=== PATIENT | male | born 1965 | race Caucasian/White ===

== ENCOUNTER 2022-08-27 13:08 | Emergency (ER) | payer OTHER, SELFPAY ==
[2022-08-27 13:18] VITALS: BP 143/95; PULSE 74; RESP 12; TEMP 36.8; O2SAT 96
--- NOTE | 2022-08-27 14:01 | ED.GENADUL_ITS ---
Discharge Plan Disposition Patient Disposition: Home Condition: Stable Discharge Details Clinical Impression: Leg weakness Primary Care Provider: Unknown,Unknown ED Provider: Eliot Peña Home Meds and New Rx's Prescriptions: Continued sennosides [senna] 8.6 mg Tablet 8.6 mg PO 2XD cetirizine 10 mg Tablet 10 mg PO 1XD levothyroxine 50 mcg Tablet 50 mcg PO 1XD pantoprazole 40 mg Tablet,Delayed Release (Dr/Ec) 40 mg PO 1XD ibuprofen 400 mg Tablet 400 mg PO 2XD PRN (Reason: Pain) aspirin 81 mg Tablet,Chewable 81 mg PO 1XD albuterol sulfate 90 mcg/actuation Hfa Aerosol Inhaler 90 mcg INHALATION 2XD MDD 2 PRN (Reason: Dyspnea) Discharge Instructions Additional Instructions: Your thyroid functions were mildly abnormal, these should be rechecked in 1-2 weeks and potentially have your levothyroxine adjusted Your exam otherwise showed no concerning findings at this time IF you develop fevers, inability to urinate, or speech difficulties return to the emergency department Medical Decision Making 57 yo male with hx of hypothyroidism, gerd, who comes in from the correctional facility after his legs gave out today. He states this happens frequently and has chronic issues with his lower legs from previous injuries. Denies any recent injuries or falls. HE was laying in bed and got up when his legs gave outand he caught himself on the bed. Denies falling to the ground, no chest pain, no dyspnea, no lightheadedness. He feels well now. Denies any back pain, fevers, chills, difficulty urinating or ivdu. He has normal sensation in the lower extremities, full rom with 5/5 strength, no lower back tenderness. NIH of 0 on arrival , clear speech no focal motor or sensation deficits. CN II-XII intact. I suspect his episode today was from his chronic issues with his legs, has no pain or tenderness of his legs currently so do not feel he requires any imaging. He is ambulating here without any issues and gait is normal. Will check cbc, cmp and cpk and reassess. pt stable, still ambulating on his own and nih of 0. Labs show no significant abnormalities, tsh is 12.59 and free t4 0.61. He is stable for d/c, advised to have tsh/free t4 rechecked with his provider, return precautions given Differential Diagnosis Differential Diagnosis: anemia, electrolyte abnormality HPI General Mode of arrival: ambulatory . Date/Time Provider Initiated Documentation: 08/27/22 13:28 . Limitations to Documentation: no limitations . Information obtained by: patient . History of Present Illness 57 year old M presents to the emergency department with the chief complaint of 'legs gave out, Patient started experiencing this day(s) (1) and it has been constant. No relieving factors improve symptom(s), No exacerbating factors reported . Patient notes no other symptoms.. Patient did receive the following treatments prior to arrival, none Related Data Home Medications Medication Instructions Recorded Confirmed albuterol sulfate 90 mcg/actuation 90 mcg inhalation 2XD PRN Dyspnea 08/27/22 08/27/22 aerosol inhaler aspirin 81 mg chewable tablet 81 mg PO 1XD 08/27/22 08/27/22 cetirizine 10 mg tablet 10 mg PO 1XD 08/27/22 08/27/22 ibuprofen 400 mg tablet 400 mg PO 2XD PRN Pain 08/27/22 08/27/22 levothyroxine 50 mcg tablet 50 mcg PO 1XD 08/27/22 08/27/22 pantoprazole 40 mg tablet,delayed 40 mg PO 1XD 08/27/22 08/27/22 release sennosides 8.6 mg tablet (senna) 8.6 mg PO 2XD 08/27/22 08/27/22 Allergies Allergy/AdvReac Type Severity Reaction Status Date / Time shellfish derived Allergy Mild Hives Unverified 08/27/22 13:29 General Stated Complaint: GenMedical KAILYN: 3 Review of Systems All systems reviewed & are unremarkable except as noted in HPI and below Constitutional Constitutional: Denies chills, Denies fever(s) and Denies weakness Cardiovascular Cardiovascular: Denies chest pain and Denies dyspnea Respiratory Respiratory: Denies cough and Denies dyspnea Gastrointestinal Gastrointestinal: Denies abdominal pain, Denies nausea and Denies vomiting Genitourinary Genitourinary: Denies dysuria Musculoskeletal Musculoskeletal: Denies joint swelling Integumentary/Breasts Skin/Breast: Denies rash Neurologic Neurologic: Denies weakness PFSH All Active Problems (Updated 08/27/22 @ 15:49 by Eliot Peña MD) Leg weakness (Acute) Social History Smoking/Tobacco Use Status: Former Tobacco Use Quit Date: 11/19/21 Tobacco: How many years used: 50 Smoking risk assessment performed?: Yes Do you feel safe at home: Yes Do you feel safe in your relationship?: Yes Exam Const General: no acute distress Orientation: alert HENMT Head: normal to inspection Ears: external ears normal General nose exam: external nose normal Mouth: moist mucous membranes Eyes General: appearance normal, both eyes and all related structures Neck Neck: normal visual inspection Resp Effort & Inspection: normal respiratory effort and able to speak in complete sentences Cardio Rate: regular rate Back/Spine/Pelvis Back: no CVA tenderness Thoracic/Lumbar Spine: No lumbar spinal tenderness Skin General skin exam: no rashes or lesions noted Neuro General: patient alert, patient oriented x3, gait normal and moves all extre mities Cranial Nerves: CN's II-XI intact bilaterally and PERRL Extrem General: normal to inspection Psych Mental Status: mental status grossly normal Course Vital Signs Vital signs: Vital Signs Temperature 36.8 C 08/27/22 13:18 Pulse 74 08/27/22 13:18 Respiratory Rate 12 08/27/22 13:18 Blood Pressure 143/95 H 08/27/22 13:18 Pulse Oximetry 96 08/27/22 13:18 Temperature 36.8 C 08/27/22 13:18 Pulse 74 08/27/22 13:18 Respiratory Rate 12 08/27/22 13:18 Respiratory Effort 08/27/22 13:24 Blood Pressure 143/95 H 08/27/22 13:18 Blood Pressure Position Sitting 08/27/22 13:18 Pulse Oximetry 96 08/27/22 13:18 Oxygen Delivery Method Room Air 08/27/22 13:18 Oxygen Flow Rate 0 08/27/22 13:18
[2022-08-27 14:21] LABS: Abs Immature Grans 0.04 10^3/uL (0.0-0.06); Absolute Basophil Count 0.06 10^3/uL (0.0-0.2); Absolute Eosinophil Count 0.29 10^3/uL (0.0-0.7); Absolute Lymphocyte Count 0.95 10^3/uL (1.2-3.4); Absolute Monocyte Count 0.59 10^3/uL (0.1-0.8); Absolute Neutrophil Count 2.95 10^3/uL (1.2-6.7); Basophils % 1.2; Eosinophils % 5.9; HCT 39.9 % (40.0-50.0); HGB 14.1 g/dL (13.5-17.5); Immature Grans % 0.8; Lymphocytes % 19.5; MCHC 35.3 % (32.0-36.0); MCV 99 fL (80-95); MPV 8.4 fL (8.0-11.0); Monocytes % 12.1; Neutrophils % 60.5; Platelet Count 239 10^3/uL (130-400); RBC 4.03 10^6/uL (4.36-5.78); RDW-SD 44.1 fL; WBC 4.88 10^3/uL (4.4-10.8)
[2022-08-27 14:43] LABS: ALT 54 U/L (16-63); AST 38 U/L (15-37); Albumin 4.1 g/dL (3.4-5.0); Alkaline Phosphatase 115 U/L (46-116); Anion Gap 6.6 mmol/L (3-11); BUN 10 mg/dL (7-18); Bilirubin, Total 0.3 mg/dL (0.2-1.0); CO2 29.4 mmol/L (21.0-32.0); CREATININE 1.1 mg/dL (0.70-1.30); Chloride 105 mmol/L (98-107); Creatine Kinase 88 U/L (39-308); Glucose 95 mg/dL (74-106); Potassium 4.2 mmol/L (3.5-5.1); Sodium 141 mmol/L (136-145); TSH (W/Ref FT4) 12.59 uIU/mL (0.36-3.74); Total Protein 7.4 g/dL (6.4-8.2)
[2022-08-27 14:59] LABS: FREE T4 0.61 ng/dL (0.76-1.46)
[2022-08-27] MEDS: Ibuprofen 600 MG TAB PO (16:01)
[2022-08-27 16:02] VITALS: BP 142/93; PULSE 69; RESP 18; O2SAT 97
[2022-08-27 16:04] VITALS: RESP 15
== END 2022-08-27 16:09 | disposition home or self-care (01) ==
PROVIDERS: Emergency Provider Emergency Medicine
DX: R53.1 Weakness (principal)
CPT/HCPCS: 80053; 82550; 99283; 83735; 84439; 84443; 85025

== ENCOUNTER 2023-02-19 14:36 | Observation (INO) | payer MEDICAID, SELFPAY ==
[2023-02-19] VITALS (137 sets, daily range): BP systolic 146–198; BP diastolic 86–139; PULSE 73–89; RESP 10–31; TEMP 37.1; O2SAT 89–96
--- NOTE | 2023-02-19 14:30 | RT.EKG_ITS ---
APPROVED REPORT Exam: Resting ECG Reason for Exam: sob Patient Location: E HR:71 bpm ECG Measurements Heart Rate 71 AXIS VT 120 P 35 QRSd 87 QRS 48 QT 401 T 111 QTc 436 Conclusion Sinus rhythm...normal P axis, V-rate 60- 99 Nonspecific T abnormalities, lateral leads...T <-0.10mV, I aVL V5 V6
[2023-02-19 14:57] LABS: BE -4 mmol/L (-2-3); HCO3 20 mmol/L (22-26); pCO2 25 mmHg (35-45); pH 7.51 (7.35-7.45); pO2 59 mmHg (80-105); sO2 92 % (95-98); tCO2 17 mmol/L (23-27)
--- NOTE | 2023-02-19 15:00 | DI.CT_ITS ---
Exam(s) CT CHEST PE CTA EXAM: CT CHEST PE CTA CLINICAL HISTORY: short of breath, hx malignancy. TECHNIQUE: Imaging Protocol: Axial CT angiography was performed with multi-slice acquisition and mu lti-planar reconstructions as well as axial, coronal and sagittal MIP reconstructions. CONTRAST MATERIAL: Intravenous: Omnipaque 350 Contrast volume:100 ml COMPARISON: No exams were available for comparison FINDINGS: Pulmonary Arteries: No evidence of filling defect to suggest pulmonary emboli. Tracheobronchial tree: Patent where visualized. Mediastinum and Jeane: No dominant adenopathy or fluid collection. Pulmonary parenchyma: No consolidation or dominant measurable mass. Emphysematous and fibrotic change s noted. Bibasilar atelectasis. Pleura: No effusion or pneumothorax. Heart: The heart is not dilated. No coronary artery calcifications are seen. Aorta: Thoracic aorta non-dilated. No aneurysm. No dissection. Upper abdomen: Fatty infiltration of the liver. Bones: Degenerative changes mid to lower thoracic spine. Tubes, Catheters, and Lines: None IMPRESSION: No evidence of pulmonary embolism. No evidence of aortic dissection Emphysematous and fibrotic changes. No acute pulmonary abnormality. RADIATION DOSE DELIVERED: 469.13mGy.cm Total DLP DATA REPOSITORY: All CT scans at this facility are submitted to the National Radiology Data Registry (NRDR) Dose Index Registry (DIR) with the [employer] (A[employer]). RADIATION OPTIMIZATION: All CT scans at this facility use at least one of these dose optimization te chniques: automated exposure control; mA and/or kV adjustment per patient size (includes targeted exa ms where dose is matched to clinical indication); or iterative reconstruction.
--- NOTE | 2023-02-19 15:17 | ED.GENADUL_ITS ---
Discharge Plan Disposition Patient Disposition: Admit to [facility] Condition: Serious Discharge Details Chief Complaint: SOB Clinical Impression: Acute dyspnea, Chest pain Primary Care Provider: Unknown,Unknown ED Provider: Shreya Angelo Home Meds and New Rx's Prescriptions: No Action prednisone 20 mg tablet 40 mg PO DAILY Qty: 10 0RF Rx Instructions: Take 2 tablets once a day for 5 days. Anoro Ellipta 62.5-25 mcg/actuation blister with device 1 inh inhalation DAILY Qty: 60 12RF hemorrhoid ointment See Rx Instructions .ROUTE DIRECTED Rx Instructions: as directed; Atrovent HFA 17 mcg/actuation HFA aerosol inhaler See Rx Instructions inhalation DIRECTED Rx Instructions: inhaled as directed; pantoprazole 40 mg tablet,delayed release (DR/EC) 40 mg PO BID Patient Comments: Not taking per med list 02/19/23 meloxicam 7.5 mg tablet 7.5 mg PO DAILY sennosides [senna] 8.6 mg Tablet 8.6 mg PO 2XD Patient Comments: Not taking per med list 02/19/23 cetirizine 10 mg Tablet 10 mg PO 1XD Patient Comments: Not taking per med list 02/19/23 levothyroxine 50 mcg Tablet 50 mcg PO 1XD ibuprofen 400 mg Tablet 400 mg PO 2XD PRN (Reason: Pain) Patient Comments: Not taking per med list 02/19/23 aspirin 81 mg Tablet,Chewable 81 mg PO 1XD albuterol sulfate 90 mcg/actuation Hfa Aerosol Inhaler 90 mcg INHALATION 2XD MDD 2 PRN (Reason: Dyspnea) Medical Decision Making 58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 History from patient and EMS. Symptoms lasted for ~4 hours. EMS gave 2 duonebs, 1 albuterol treatemnt, 125mg of IV solumedrol prior to arrival. Patient reports feeling much better on arrival, has mild chest pain and minimal shortness of breath at rest. Moderately hypertensive with SBP in 160's, vital signs otherwise reassuring, O2 sat >92% on room air.. No wheezing or increased work of breathing on exam. He does become dyspneic with minimal exertion i.e. sitting up on stretcher to allow for auscultation. EKG NSR, nonspecific T wave abnormalities in the the lateral leads, no ST segment or T wave changes to suggest occlusive PA. Labs as below, CBC & CMP reassuring; no leukocytosis or anemia, elevated glucose at 228 (patient denies DM), Cr 1.4 (marginally increased from most recent prior Aug 2022 was 1.1). Troponin negative. CT for PE independently reviewed; no pulmonary embolism, no pneumonia or pneumothorax, agree with radiology read below. Delta troponin pending. Workup reassuring but patient markedly symptomatic with minimal exertion. Accepted by hospitalist for further workup and management, awaiting transfer to the floor. Imaging Data Radiologic Study: Imaging: CT Scan Radiologist's impression: IMPRESSION: No evidence of pulmonary embolism. No evidence of aortic dissection Emphysematous and fibrotic changes.? No acute pulmonary abnormality. Lab Data Lab results reviewed: Yes I reviewed the patient's lab results. Labs: Laboratory Tests Range/Units 02/19/23 02/19/23 02/19/23 15:29 15:29 15:29 WBC (4.4-10.8) 10^3/uL 6.97 RBC (4.36-5.78) 10^6/uL 4.40 Hgb (13.5-17.5) g/dL 15.1 Hct (40.0-50.0) % 41.7 MCV (80-95) fL 95 MCH (27.0-33.0) pg 34.3 H MCHC (32.0-36.0) % 36.2 H RDW (11.8-14.1) % 12.5 Plt Count (130-400) 10^3/uL 295 MPV (8.0-11.0) fL 8.3 Immature Gran % 0.0 Neutrophils % 79.0 Lymphocytes % 16.0 Monocytes % 4.0 Eosinophils % 0.0 Basophils % 0.0 Metamyelocytes % 1 Nucleated RBC % (0.0-0.3) % 0.0 Absolute Neutrophils (1.2-6.7) 10^3/uL 5.51 Absolute Lymphocytes (1.2-3.4) 10^3/uL 1.12 L Absolute Monocytes (0.1-0.8) 10^3/uL 0.28 Absolute Eosinophils (0.0-0.7) 10^3/uL 0.00 Absolute Basophils (0.0-0.2) 10^3/uL 0.00 RBC Morphology Normal Sodium (136-145) mmol/L 138 Potassium (3.5-5.1) mmol/L 3.7 Chloride (98-107) mmol/L 103 Carbon Dioxide (21.0-32.0) mmol/L 22.3 Anion Gap (3-11) mmol/L 12.7 H BUN (7-18) mg/dL 18 Creatinine (0.70-1.30) mg/dL 1.4 H Est GFR (CKD-EPI 2020) (mL/min/1.73m2) 58.26 Glucose (74-106) mg/dL 228 H Calcium (8.5-10.1) mg/dL 9.4 Magnesium (1.8-2.4) mg/dL 2.0 Total Bilirubin (0.2-1.0) mg/dL 0.4 AST (15-37) U/L 47 H ALT (16-63) U/L 131 H Alkaline Phosphatase (46-116) U/L 101 Troponin I (<or=60) ng/L < 50 NT-Pro-B Natriuret Pep (<300) pg/mL 48 Total Protein (6.4-8.2) g/dL 7.7 Albumin (3.4-5.0) g/dL 4.2 HPI General Date/Time Provider Initiated Documentation: 02/19/23 14:45 . Limitations to Documentation: no limitations . Information obtained by: patient . 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 Has noticed worsening dyspnea on exertion over the past several weeks which usually resolves with rest. Today while ambulating had severe shortness of breath was associated chest pain/tightness which lasted for around four hours and did not resolve with rest. EMS gave breathing treatments prior to arrival; currently reports breathing is much improved and chest pain is almost gone (2/10 in severity, substernal, dull, no alleviating or aggravating factors, not pleuritic). No prior heart attacks or heart failure; did have heart burning which they burned away (possibly ablation for afib? patient unsure). No fevers, chills, rash, nasuea, vomiting, abdominal pain, LE edema, palpitations, syncope, presyncope, or other concerns. Related Data Home Medications Medication Instructions Recorded Confirmed albuterol sulfate 90 mcg/actuation 90 mcg inhalation 2XD PRN Dyspnea 08/27/22 02/19/23 aerosol inhaler aspirin 81 mg chewable tablet 81 mg PO 1XD 08/27/22 02/19/23 cetirizine 10 mg tablet 10 mg PO 1XD 08/27/22 02/12/23 ibuprofen 400 mg tablet 400 mg PO 2XD PRN Pain 08/27/22 02/12/23 levothyroxine 50 mcg tablet 50 mcg PO 1XD 08/27/22 02/19/23 sennosides 8.6 mg tablet (senna) 8.6 mg PO 2XD 08/27/22 02/12/23 hemorrhoid ointment See Rx Instructions .Route 02/05/23 02/19/23 DIRECTED ipratropium bromide 17 See Rx Instructions inhalation 02/05/23 02/19/23 mcg/actuation HFA aerosol inhaler DIRECTED (Atrovent HFA) meloxicam 7.5 mg tablet 7.5 mg PO DAILY 02/09/23 02/19/23 pantoprazole 40 mg tablet,delayed 40 mg PO BID 02/09/23 02/12/23 release prednisone 20 mg tablet 40 mg PO DAILY #10 tabs 02/12/23 02/19/23 umeclidinium 62.5 mcg-vilanterol 1 inh inhalation DAILY #60 ea 02/12/23 02/19/23 25 mcg/actuation powdr for inhalation (Anoro Ellipta) Previous Rx's Medication Instructions Recorded prednisone 20 mg tablet 40 mg PO DAILY #10 tabs 02/12/23 umeclidinium 62.5 mcg-vilanterol 1 inh inhalation DAILY #60 ea 02/12/23 25 mcg/actuation powdr for inhalation (Anoro Ellipta) Allergies Allergy/AdvReac Type Severity Reaction Status Date / Time shellfish derived Allergy Mild Hives Unverified 02/19/23 14:44 acetaminophen [From Tylenol] Allergy Unknown Verified 02/19/23 14:44 fish Allergy Unknown Uncoded 02/19/23 14:44 General Stated Complaint: SOB KAILYN: 2 Review of Systems Narrative: see HPI PFSH All Active Problems (Updated 02/19/23 @ 20:19 by Shreya Angelo MD) Acute dyspnea (Acute) CKD (chronic kidney disease) (Chronic) Transaminasemia (Acute) Hyperglycemia (Acute) Chest pain (Acute) Former cigarette smoker (Acute) Adjustment disorder with depressed mood (Acute) Pain in right hip (Acute) Malignant neoplasm of nasopharynx (Acute) COPD (chronic obstructive pulmonary disease) (Chronic) Medical History (Updated 02/19/23 @ 20:19 by Shreya Angelo MD) GERD (gastroesophageal reflux disease) Hypothyroidism Lymphoma Mental health problem Mild cognitive impairment, so stated Stroke Unspecified hearing loss Viral warts Family History Father Diabetes Brother Diabetes Both 1/2 brothers had diabetes. Paternal Grandfather Diabetes Uncle Lung cancer Social History Smoking/Tobacco Use Status: Former Tobacco Use Quit Date: 11/19/21 Tobacco: How many years used: 50 Smoking risk assessment performed?: Yes Substance use type: does not use Do you feel safe at home: Yes Do you feel safe in your relationship?: Yes Additional Social history: Pt smoked since he was 8 yrs old. He smoked 2 to 3 PPD and quit about 1.5 yrs ago. Exam Narrative Exam Narrative: General: Alert, well appearing, well nourished, in no acute distress. Head: Normocephalic, atraumatic Neck: Trachea midline, Neck supple. ENT: MMM. Cardiac: RRR, no murmurs appreciated Resp: No respiratory distress. CTAB. O2 sat 92% at rest. Becomes dyspneic with minimal exertion (sitting up on stretcher to allow for auscultation) Abd: Soft, non-distended, nontender : No suprapubic tenderness. Extremities: No deformities. No peripheral edema. Neurologic: GCS 15. Moves all extremities freely against gravity Course Vital Signs Vital signs: Vital Signs Pulse 78 02/19/23 14:35 Respiratory Rate 31 H 02/19/23 14:35 Blood Pressure 184/96 H 02/19/23 14:35 Pulse Oximetry 95 02/19/23 14:35 Temperature Source Skin 02/19/23 14:35 Pulse 80 02/19/23 15:10 Pulse 82 02/19/23 15:10 Respiratory Rate 20 02/19/23 15:10 Blood Pressure 156/98 H 02/19/23 15:10 Blood Pressure Mean 113 02/19/23 15:10 Blood Pressure Position Right Lateral 02/19/23 14:35 Pulse Oximetry 92 02/19/23 15:10 Respiratory End-tidal CO2 20 02/19/23 14:39 Oxygen Delivery Method Aerosol Mask 02/19/23 14:35 Oxygen Flow Rate 10 02/19/23 14:35
[2023-02-19 15:37] LABS: Abs Immature Grans 0.36 10^3/uL (0.0-0.06); HCT 41.7 % (40.0-50.0); HGB 15.1 g/dL (13.5-17.5); MCH 34.3 pg (27.0-33.0); MCHC 36.2 % (32.0-36.0); MCV 95 fL (80-95); MPV 8.3 fL (8.0-11.0); Platelet Count 295 10^3/uL (130-400); RDW 12.5 % (11.8-14.1); RDW-SD 43.5 fL; WBC 6.97 10^3/uL (4.4-10.8)
[2023-02-19 15:53] LABS: Absolute Lymphocyte Count 1.12 10^3/uL (1.2-3.4); Absolute Monocyte Count 0.28 10^3/uL (0.1-0.8); Absolute Neutrophil Count 5.51 10^3/uL (1.2-6.7)
[2023-02-19 15:54] LABS: Diff Comment Manual Differential; Metamyelocytes % 1; RBC Morphology Normal
[2023-02-19 16:00] LABS: Troponin I < 50 ng/L (<or=60)
[2023-02-19 16:03] LABS: ALT 131 U/L (16-63); AST 47 U/L (15-37); Albumin 4.2 g/dL (3.4-5.0); Alkaline Phosphatase 101 U/L (46-116); Anion Gap 12.7 mmol/L (3-11); BUN 18 mg/dL (7-18); Bilirubin, Total 0.4 mg/dL (0.2-1.0); CO2 22.3 mmol/L (21.0-32.0); CREATININE 1.4 mg/dL (0.70-1.30); Calcium 9.4 mg/dL (8.5-10.1); Chloride 103 mmol/L (98-107); Estimated GFR 58.26 (mL/min/1.73m2); Glucose 228 mg/dL (74-106); NT-proBNP 48 pg/mL (<300); Potassium 3.7 mmol/L (3.5-5.1); Sodium 138 mmol/L (136-145); Total Protein 7.7 g/dL (6.4-8.2)
[2023-02-19] MEDS: Omnipaque 350 MG/ML 100 ML BTL IJ (16:46)
[2023-02-19] MEDS: Normal Saline - Diluent 50 ML VIAL IJ (16:51)
[2023-02-19] MEDS: Normal Saline Flush 10 ML SYR IVP (16:52)
[2023-02-19 17:57] LABS: FIO2 21 %; Site Left Radial
[2023-02-19 18:13] LABS: BE -3 mmol/L (-2-3); HCO3 21 mmol/L (22-26); pCO2 32 mmHg (35-45); pH 7.43 (7.35-7.45); pO2 69 mmHg (80-105)
[2023-02-19 18:15] LABS: sO2 93 % (95-98); tCO2 18 mmol/L (23-27)
[2023-02-19 18:17] LABS: FIO2 21 %; Site Left Radial
--- NOTE | 2023-02-19 19:00 | NUR.NOTE ---
Nursing Note: Report received from Eliot COOPER; assumed care at this time.
[2023-02-19 19:19] LABS: Troponin I < 50 ng/L (<or=60)
--- NOTE | 2023-02-19 19:59 | W.PM.HP.N ---
Date of service: 02/19/23 Time of Service: 19:59 Assessment and Plan Assessment and plan (1) COPD (chronic obstructive pulmonary disease): Status: Chronic Assessment and plan: Exertional dyspnea likely explained by severe underlying pulmonary disease at baseline with perhaps mild exacerbation. He would benefit from PFTs when closer to baseline and for now we will order IV steroids, empiric antibiotics, respiratory treatments. Likely has exertional hypoxia and would walk the patient on room air tomorrow to see if he qualifies for supplemental O2. Continued Anoro which was recently prescribed. (2) Stroke: Assessment and plan: Neurologically stable, continue aspirin and started statin. (3) Hypothyroidism: Assessment and plan: Ordered replacement and TSH. (4) Lymphoma: Assessment and plan: Could have element of radiation induced fibrosis contributing to dyspnea. (5) Chest pain: Status: Acute Assessment and plan: Trend troponin and monitor on telemetry. Ordered lipid panel but holding statin for now given elevated ALT. Continue aspirin. Ordered echocardiogram given his exertional dyspnea and possible pulmonary hypertension. Would consider perfusion study but not urgently if his symptoms remain stable with negative troponins and EKG. (6) Hyperglycemia: Status: Acute Assessment and plan: Random and likely to be exacerbated by steroids. Ordered A1c and will track fingersticks to see if he needs insulin coverage. (7) Transaminasemia: Status: Acute Assessment and plan: Will require outpatient evaluation if remains elevated. (8) CKD (chronic kidney disease): Status: Chronic Assessment and plan: Should tolerate volume expansion with IV fluids given contrast administration and will recheck renal function tomorrow. History of Present Illness History of Present Illness Chief Complaint: Shortness of breath Narrative: This 58-year-old male reports exertional dyspnea worsening over the past 8 years. This has worsened somewhat over the past few weeks and correctional facility staff corroborate that he has been short of breath with walking 50 to 60 feet, usually requiring stopping to rest. Has also had some sharp chest pain which is occasionally relieved by beating on his chest but usually settles down as his dyspnea improves. No fever or chills, no significant productive cough. No history of COPD although states that he was recently prescribed inhalers but has not received any yet. Med list indicates recent prednisone administration but he he does not know if he has taken this yet. Has not used oxygen. No history of cardiac testing or formal pulmonary function testing. No exertional lightheadedness or dizziness. He smoked for about 50 years at at least 1 to 2 packs/day on average and has not had any alcohol use since being incarcerated over the past several months. No other drug use noted. Family history is negative for premature coronary artery disease. 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 Posttreatment developed hypothyroidism. Review of Systems All systems reviewed & are unremarkable except as noted in HPI and below PFSH All Active Problems (Updated 02/19/23 @ 20:09 by Barney Pinedo MD) CKD (chronic kidney disease) (Chronic) Transaminasemia (Acute) Hyperglycemia (Acute) Chest pain (Acute) Former cigarette smoker (Acute) Adjustment disorder with depressed mood (Acute) Pain in right hip (Acute) Malignant neoplasm of nasopharynx (Acute) COPD (chronic obstructive pulmonary disease) (Chronic) Medical History (Updated 02/19/23 @ 20:09 by Barney Pinedo MD) GERD (gastroesophageal reflux disease) Hypothyroidism Lymphoma Mental health problem Mild cognitive impairment, so stated Stroke Unspecified hearing loss Viral warts Family History Father Diabetes Brother Diabetes Both 1/2 brothers had diabetes. Paternal Grandfather Diabetes Uncle Lung cancer Social History Smoking/Tobacco Use Status: Former Tobacco Use Quit Date: 11/19/21 Tobacco: How many years used: 50 Smoking risk assessment performed?: Yes Substance use type: does not use Do you feel safe at home: Yes Do you feel safe in your relationship?: Yes Additional Social history: Pt smoked since he was 8 yrs old. He smoked 2 to 3 PPD and quit about 1.5 yrs ago. Meds Allergies and Home Medications Allergies Allergy/AdvReac Type Severity Reaction Status Date / Time shellfish derived Allergy Mild Hives Unverified 02/19/23 14:44 acetaminophen [From Tylenol] Allergy Unknown Verified 02/19/23 14:44 fish Allergy Unknown Uncoded 02/19/23 14:44 Home Medications Medication Instructions Recorded Confirmed Type albuterol sulfate 90 mcg/actuation 90 mcg inhalation 2XD PRN Dyspnea 08/27/22 02/19/23 History aerosol inhaler aspirin 81 mg chewable tablet 81 mg PO 1XD 08/27/22 02/19/23 History cetirizine 10 mg tablet 10 mg PO 1XD 08/27/22 02/12/23 History ibuprofen 400 mg tablet 400 mg PO 2XD PRN Pain 08/27/22 02/12/23 History levothyroxine 50 mcg tablet 50 mcg PO 1XD 08/27/22 02/19/23 History sennosides 8.6 mg tablet (senna) 8.6 mg PO 2XD 08/27/22 02/12/23 History hemorrhoid ointment See Rx Instructions .Route 02/05/23 02/19/23 History DIRECTED ipratropium bromide 17 See Rx Instructions inhalation 02/05/23 02/19/23 History mcg/actuation HFA aerosol inhaler DIRECTED (Atrovent HFA) meloxicam 7.5 mg tablet 7.5 mg PO DAILY 02/09/23 02/19/23 History pantoprazole 40 mg tablet,delayed 40 mg PO BID 02/09/23 02/12/23 History release prednisone 20 mg tablet 40 mg PO DAILY #10 tabs 02/12/23 02/19/23 Rx umeclidinium 62.5 mcg-vilanterol 1 inh inhalation DAILY #60 ea 02/12/23 02/19/23 Rx 25 mcg/actuation powdr for inhalation (Anoro Ellipta) Exam Narrative Exam Narrative: General patient is awake and alert and in no acute distress, affect appropriate HEENT pupils are equal round and reactive to light, no conjunctival pallor or scleral icterus, oral mucosa moist without erythema or exudate Neck well-healed surgical scar noted with some subcutaneous fibrosis noted but no obvious lymphadenopathy, carotid pulses are normal and symmetric without bruits CV regular, no audible murmur, no gallop or JVD Lungs very quiet breath sounds bilaterally with no crackles, wheezes, dullness to percussion Abdomen soft, nontender, no organomegaly or masses, bowel sounds are normal Extremities trace peripheral edema noted in the lower extremities, mild clubbing noted, distal pulses normal and symmetric Joints no inflammatory changes noted Neurologic strength and sensation normal and symmetric, no tremor Results Imaging Additional studies: Reviewed both ABGs which show PO2 in the 60s with a mild respiratory alkalosis. Noted random glucose above 200 and SGPT barely exceeds 2 times ULN. Reviewed his EKG which shows sinus rhythm and no ST segment or T wave abnormalities. I also reviewed his CT chest which shows emphysematous and fibrotic changes but no infiltrate, pleural effusions, pulmonary embolus. Labs 02/19/23 15:29 02/19/23 15:29 Labs: Laboratory Results - last 24 hr 02/19/23 02/19/23 02/19/23 14:50 15:29 15:29 WBC 6.97 RBC 4.40 Hgb 15.1 Hct 41.7 MCV 95 MCH 34.3 H MCHC 36.2 H RDW 12.5 Plt Count 295 MPV 8.3 Immature Gran % 0.0 Neutrophils % 79.0 Lymphocytes % 16.0 Monocytes % 4.0 Eosinophils % 0.0 Basophils % 0.0 Metamyelocytes % 1 Nucleated RBC % 0.0 Absolute Neutrophils 5.51 Absolute Lymphocytes 1.12 L Absolute Monocytes 0.28 Absolute Eosinophils 0.00 Absolute Basophils 0.00 RBC Morphology Normal ABG Sample Site Left Radial ABG pH 7.51 H ABG pCO2 25 L ABG pO2 59 L ABG HCO3 20 L ABG Total CO2 17 L ABG O2 Saturation 92 L ABG Base Excess -4 L FiO2 21 Sodium 138 Potassium 3.7 Chloride 103 Carbon Dioxide 22.3 Anion Gap 12.7 H BUN 18 Creatinine 1.4 H Est GFR (CKD-EPI 2020) 58.26 Glucose 228 H Calcium 9.4 Magnesium 2.0 Total Bilirubin 0.4 AST 47 H ALT 131 H Alkaline Phosphatase 101 Troponin I NT-Pro-B Natriuret Pep 48 Total Protein 7.7 Albumin 4.2 02/19/23 02/19/23 02/19/23 15:29 18:08 18:52 WBC RBC Hgb Hct MCV MCH MCHC RDW Plt Count MPV Immature Gran % Neutrophils % Lymphocytes % Monocytes % Eosinophils % Basophils % Metamyelocytes % Nucleated RBC % Absolute Neutrophils Absolute Lymphocytes Absolute Monocytes Absolute Eosinophils Absolute Basophils RBC Morphology ABG Sample Site Left Radial ABG pH 7.43 ABG pCO2 32 L ABG pO2 69 L ABG HCO3 21 L ABG Total CO2 18 L ABG O2 Saturation 93 L ABG Base Excess -3 L FiO2 21 Sodium Potassium Chloride Carbon Dioxide Anion Gap BUN Creatinine Est GFR (CKD-EPI 2020) Glucose Calcium Magnesium Total Bilirubin AST ALT Alkaline Phosphatase Troponin I < 50 < 50 NT-Pro-B Natriuret Pep Total Protein Albumin Last Vital Signs Pulse 86 02/19/23 19:01 Resp 23 02/19/23 19:12 BP 180/96 H 02/19/23 19:01 Pulse Ox 94 02/19/23 19:12 Time Spent Time spent with Patient: 40-54 minutes Time was spent: preparing to see the patient(eg.review tests), obtaining and/or reviewing separately otained hiistory, ordering medications,tests, procedures, referring, communicating with other health healthcare risk control consultant, indepentently interpreting results, counseling the patient and care coordination
[2023-02-19 20:27] LABS: Source Nasal/Nares
--- NOTE | 2023-02-19 20:34 | NUR.NOTE ---
Nursing Note: Report called to Adilia COOPER; pt will be going to room 214 shortly.
[2023-02-19 20:57] LABS: COVID-19 PCR Negative (Negative)
[2023-02-19] MEDS: Albuterol/Ipratropium 3 ML UPD VIAL UPD (21:29)
[2023-02-19] MEDS: Enoxaparin 40 MG/0.4 ML SYR SC (21:29)
[2023-02-19] MEDS: Aspirin 81 MG CHEW PO (21:29)
[2023-02-19] MEDS: Doxycycline Hyclate 100 MG CAP PO (21:29)
[2023-02-19] MEDS: methylPREDNISolone SUCC 40 MG VIAL IVP (21:30)
[2023-02-19] MEDS: Lactated Ringers 1,000 ML 70 ML IV (21:41)
[2023-02-19] MEDS: Pantoprazole 40 MG TABCR PO (23:05)
[2023-02-19 23:24] LABS: Troponin I < 50 ng/L (<or=60)
--- NOTE | 2023-02-20 | DI.US_ITS ---
APPROVED REPORT EXAM: Comprehensive 2D, Doppler, and color-flow Echocardiogram Patient Location: In-Patient Room/Bed: 214 Hot Blaster: Hoda Wick RDCS (AE) Indications: Exertional dyspnea, COPD, Chest pain Other Information Study Quality: Adequate Conclusion The left ventricular wall thickness and chamber size. Ejection fraction is 60 to 65%. There are no segmental wall motion abnormalities Normal right ventricular size and systolic function Both atria are normal in size There is no structural or hemodynamically significant valvular disease Right ventricular systolic pressure could not be estimated Mildly dilated aortic root and ascending aorta Wall motion Left Ventricle The left ventricle is normal size. The left ventricular systolic function is normal. The left ventric ular ejection fraction is within the normal range. There is normal left ventricular wall thickness. T here is normal LV segmental wall motion. There is no ventricular septal defect visualized. LVEF is 59 %. Right Ventricle The right ventricle is normal size. The right ventricular systolic function is normal. Atria The left atrium size is normal. The right atrium size is normal. The interatrial septum is intact wit h no evidence for an atrial septal defect. Aortic Valve The aortic valve is normal in structure. Aortic valve is trileaflet. There is no aortic valvular st enosis. No aortic regurgitation is present. Mitral Valve The mitral valve is normal in structure. No evidence of mitral valve stenosis. Mild mitral regurgitat ion. Tricuspid Valve The tricuspid valve is normal in structure. There is no tricuspid valve stenosis. Trace tricuspid reg urgitation. Unable to assess PA pressure. Pulmonic Valve The pulmonary valve is normal in structure. There is no pulmonic valvular stenosis. There is no pulmo jesus valvular regurgitation. Great Vessels The aortic root is normal in size. The ascending aorta is mildly dilated. Aortic arch is normal in ca liber. IVC is normal in size and collapses >50% with inspiration. Pericardium There is no pericardial effusion. 2D Dimensions IVSD d PLAX 0.73 cm M: 0.6-1.2 LV Vol A2C d MOD 81.3 mL LVPW d PLAX 0.73 cm M: 0.6 - 1.2 LV Vol A4C d MOD 94.5 mL LVID d PLAX 5.13 cm M: 4.2 - 5.8 LA vol/ BSA A2C s A-L 17.9 mL/m2 LVDs 3.50 cm M: 2.5 - 4.0 LA vol/ BSA A4C s A-L 19.7 mL/m2 Ao Root d 3.53 cm M: 3.1 - 3.7 LA Vol/ BSA Biplane s A-L 18.9 mL/m2 RA Area A4C 10.22 cm2 LA Area A4C s MOD 15.28 cm2 RA Vol/ BSA A4C s A-L 11.9 mL/m2 LA Area A2C s MOD 14.45 cm2 Ao Asc Diam d 3.79 cm M: 2.6 - 3.4 LV EF A4C MOD 59.1 % LV EF Teichholz 58.5 % LV EF A2C MOD 58.0 % LVEF (Elizalde's) 56.60 % M: 52 - 72 LV EF Biplane MOD 56.6 % LV Volume 65.68 mL M: 62 - 150 SV 49.97 mL LV Volume Index 32.03 mL/m2 M: 34 - 74 SV Index 24.37 mL/m2 LV Vol Biplane MOD 88.3 mL FS 31.05 % M-Mode TAPSE 2.49 cm (M/F) >1.7 LV Diastology MV E' medial 0.075 (>0.07 m/s) E/A Ratio 1.0 LV E/e MED 9.30 (<14) MV E Vmax 0.70 (0.4-1.3 m/s) MV E' lateral 0.116 (>0.1 m/s) MV A Vmax 0.70 (0.4-1.3 m/s) LV E/e LAT 6.05 (<14) MV E/A Ratio 0.94 MV E/E' medial 9.35 MV E/E' lateral 6.06 Aortic Valve LVOT Area 3.31 cm2 AoV Area Vmax 2.35 cm2 LVOT Vmax 1.39 m/s AoV Area/ BSA (Vmax) 1.15 cm2/m2 LVOT Mean Anthony. 0.87 m/s BRIANDA Mean Anthony. 2.16 cm2 LVOT Peak Grad 7.8 mmHg BRIANDA Mean Anthony. Index 1.06 cm2/m2 LVOT Mean Grad 3.6 mmHg LVOT VTI 0.250 m LVOT Diam s 2.05 cm AoV Vmax 1.96 m/s Velocity Ratio 0.71 AoV Mean Anthony. 1.32 m/s AoV Peak Grad 15.4 mmHg LVOT SV 82.76 mL AoV Mean Grad 8.0 mmHg AoV VTI 0.301 m AoV Area VTI 2.75 cm2 AoV Area/ BSA (VTI) 1.34 cm/m2 Mitral Valve MV DT 235 (160-240 msec) MV PHT 68 msec MV Area PHT 3.23 cm2 MV VTI 0.272 m MV Area VTI 3.05 (4.0-6.0 cm2) Pulmonary Valve PV Vmax 1.48 (0.5-1.5 m/s) RVOT Peak Gr. 4.67 mmHg PV Peak Grad 8.7 mmHg RVOT Mean Gr. 2.20 mmHg PV Mean Grad 4.5 mmHg RVOT VTI 0.180 m PV VTI 0.251 m RVOT Vmax 1.08 m/s
[2023-02-20 03:54] VITALS: BP 129/85; PULSE 72; RESP 18; TEMP 36.1; O2SAT 93
[2023-02-20] MEDS: Levothyroxine 50 MCG TAB PO (06:08)
[2023-02-20 07:00] VITALS: PULSE 78
[2023-02-20 07:02] LABS: Abs Immature Grans 0.56 10^3/uL (0.0-0.06); HCT 38.8 % (40.0-50.0); MCH 34.5 pg (27.0-33.0); MCHC 36.1 % (32.0-36.0); MCV 96 fL (80-95); MPV 8.5 fL (8.0-11.0); Platelet Count 282 10^3/uL (130-400); RBC 4.06 10^6/uL (4.36-5.78); RDW 12.7 % (11.8-14.1); RDW-SD 45.3 fL; WBC 11.05 10^3/uL (4.4-10.8)
[2023-02-20 07:26] LABS: Calculated LDL 131 mg/dL (<100); Cholesterol 212 mg/dL (<200); HDL Cholesterol 61 mg/dL (40-60); Hemoglobin A1C 5.8 % (<5.7); Magnesium 1.9 mg/dL (1.8-2.4); TSH (W/Ref FT4) 2.38 uIU/mL (0.36-3.74); Triglyceride 100 mg/dL (<150); Troponin I < 50 ng/L (<or=60)
[2023-02-20 07:33] LABS: Absolute Neutrophil Count 8.84 10^3/uL (1.2-6.7)
[2023-02-20 07:34] LABS: Absolute Basophil Count 0.11 10^3/uL (0.0-0.2); Absolute Lymphocyte Count 1.22 10^3/uL (1.2-3.4); Absolute Monocyte Count 0.77 10^3/uL (0.1-0.8); Diff Comment Manual Differential; Metamyelocytes % 1; RBC Morphology Normal
[2023-02-20 07:37] VITALS: BP 152/93; PULSE 80; RESP 18; TEMP 36.8; O2SAT 95
[2023-02-20] MEDS: Doxycycline Hyclate 100 MG CAP PO (07:38)
[2023-02-20] MEDS: Aspirin 81 MG CHEW PO (07:38)
[2023-02-20 07:45] VITALS: PULSE 79; RESP 1; RESP 20; O2SAT 96
[2023-02-20] MEDS: Albuterol/Ipratropium 3 ML UPD VIAL UPD (07:45)
[2023-02-20 08:06] LABS: Anion Gap 14.2 mmol/L (3-11); BUN 22 mg/dL (7-18); CO2 20.8 mmol/L (21.0-32.0); CREATININE 1.2 mg/dL (0.70-1.30); Chloride 103 mmol/L (98-107); Glucose 139 mg/dL (74-106); Potassium 3.9 mmol/L (3.5-5.1); Sodium 138 mmol/L (136-145)
[2023-02-20 08:11] LABS: C-Reactive Protein < 0.05 mg/dL (0.0-0.3)
[2023-02-20] MEDS: Omeprazole 20 MG CAPCR PO (08:16)
[2023-02-20] MEDS: MELOXICAM 7.5 MG TAB PO (08:16)
[2023-02-20] MEDS: predniSONE 20 MG TAB 40 MG PO (08:16)
[2023-02-20 08:44] LABS: Procalcitonin < 0.1 ng/mL
--- NOTE | 2023-02-20 09:09 | PDOC.CMIN ---
Date of service: 02/20/23 Time of Service: 09:09 Care Management Initial Assmt Initial Assessment REASON FOR HOSPITALIZATION:: exertional dyspnea, Chest pain PREVIOUS FUNCTIONAL STATUS/SOCIAL/FAMILY SUPPORTS:: Omari is incarcerated at [facility]. He is independent at baseline and uses a front wheeled walker. ADVANCE DIRECTIVES:: None on file Has patient been provided with info about the portal/API?: Yes Did the patient sign up for the portal?: No CODE STATUS:: Full Code INSURANCE COVERAGE / FINANCIAL ISSUES:: [facility] CURRENT HOME/COMMUNITY SERVICES/EQUIPMENT:: [facility] PRIMARY CARE PHYSICIAN:: Unknown PATIENT/FAMILY EDUCATION NEEDS:: Review discharge instructions, limitations and plan to follow up with community providers. Discuss ask me three and goals of self care. TRANSPORTATION:: Secure transport coordinated by [facility] PLAN:: Omari is discharged back to [facility]. He will follow up with facility/outpatient providers and his his discharge plan of care as recommended. No new services are ordered prior to discharge. CM reviewed with Eugenia at [facility]. Secure transport will be coordinated by [facility]. PFSH All Active Problems (Updated 02/20/23 @ 14:05 by Jaclyn Reddy MD) Exertional dyspnea (Acute) H/O: stroke (Acute) Prediabetes (Acute) Chronic neck pain (Acute) Acute bronchitis (Acute) Acute exacerbation of chronic obstructive pulmonary disease (COPD) (Acute) Acute dyspnea (Acute) CKD (chronic kidney disease) (Chronic) Transaminasemia (Acute) Hyperglycemia (Acute) Former cigarette smoker (Acute) Adjustment disorder with depressed mood (Acute) Pain in right hip (Acute) Malignant neoplasm of nasopharynx (Acute) COPD (chronic obstructive pulmonary disease) (Chronic) Medical History (Updated 02/20/23 @ 14:05 by Jaclyn Reddy MD) GERD (gastroesophageal reflux disease) Hypothyroidism Lymphoma Mental health problem Mild cognitive impairment, so stated Stroke Unspecified hearing loss Viral warts Family History Father Diabetes Brother Diabetes Both 1/2 brothers had diabetes. Paternal Grandfather Diabetes Uncle Lung cancer Social History Smoking/Tobacco Use Status: Former Tobacco Use Quit Date: 11/19/21 Tobacco: How many years used: 50 Smoking risk assessment performed?: Yes Substance use type: does not use Housing: other Do you feel safe at home: Yes Do you feel safe in your relationship?: Yes Additional Social history: Pt smoked since he was 8 yrs old. He smoked 2 to 3 PPD and quit about 1.5 yrs ago.
[2023-02-20] MEDS: Tiotropium/Olodaterol 10 PUFF INHALER 2 PUFF IH (10:04)
[2023-02-20 10:16] VITALS: PULSE 100; PULSE 81; PULSE 83; RESP 16; RESP 32; O2SAT 97; O2SAT 98
[2023-02-20 11:18] VITALS: BP 120/80; PULSE 85; TEMP 36.6; O2SAT 93
--- NOTE | 2023-02-20 11:57 | PDOC.CMDIS ---
Date of service: 02/20/23 Time of Service: 11:57 LACE Index Scoring Tool Questions: Length of Stay (in days): 1 Was the patient admitted via the E.D.?: Yes Comorbidities: Chronic Pulmonary Disease and Liver or Renal Disease E.D. Visits: 2 Answers: Total Score: 11 Risk of Readmission: High Risk Care Management Discharge Plan Reason for Hospitalization: exertional dyspnea, Chest pain Discharge Plan: Omari is discharged back to [facility]. He will follow up with facility/outpatient providers and his his discharge plan of care as recommended. No new services are ordered prior to discharge. CM notified Eugenia at [facility]. Secure transport is coordinated by [facility]. Patient/Family Education Needs: Review discharge instruction, medications, limitation and plan to follow up with community providers. Discuss ask me three.
[2023-02-20 12:13] LABS: Lab Add On Test DONE
--- NOTE | 2023-02-20 13:47 | DSE_ITS ---
Date of service: 02/20/23 Time of Service: 13:47 DS: Diagnosis Discharge Diagnosis (1) Acute exacerbation of chronic obstructive pulmonary disease (COPD): Status: Acute (2) Acute bronchitis: Status: Acute (3) Chest pain: Status: Resolved Asessment and Plan: ACS ruled out (4) Transaminasemia: Status: Acute (5) Hypothyroidism: (6) Lymphoma: (7) CKD (chronic kidney disease): Status: Chronic (8) Chronic neck pain: Status: Acute (9) Prediabetes: Status: Acute (10) H/O: stroke: Status: Acute Discharge Plan Disposition Patient Dis[facility] Condition: Improving Discharge Details Reason For Visit: Exertional Dyspnea/Chest Pain Admit Date/Time: 02/19/23 19:48 Admit Provider: Jaclyn Reddy Attending Provider: Jaclyn Reddy Primary Care Provider: Unknown,Unknown Hospital Course Hospital Course: Mr Fernandez is a 58 year old male with PMHx of suspected COPD (PFTs pending), as well as distant CVA, lymphoma s/p XRT, h/o tobacco abuse, who was a patient on [facility] hospitalist service from 02/19/23 until 02/20/23 for a COPD exacerbation due to bronchitis, as the patient described cough productive of purulent sputum, with imaging negative for pneumonia and a negative procalcitonin. He had also reported chest pain. He was started on steroids, doxycycline, bronchodilators (nebs) with significant improvement. ACS was ruled out with serial troponins and EKGs. There was no evidence of arrhythmias. He did not require oxygen. He ruled for acute PE or pneumonia by CTA. The CT did show emphysematous and fibrotic changes. His echocardiogram showed LVEF of 60-65% without segmental wall motion abnormalities, no hemodynamically significant valvular disease and no evidence of pulmonary hypertension. The patient passed exercise oximetry testing on room air, walking more than 300 feet without needing to stop to breathe. He is being [facility] the [facility] with a steroid taper, 4 more days of doxycycline, recommendations for follow up with pulmonology for the PFTs and sleep study which had been previously ordered, an MPI stress test once his respiratory condition has resolved. He had evidence of elevated LFTs. We do not know the baseline for his LFTs. There is a pending hepatitis panel which will need to be followed up on discharge. Depending on those results, he may benefit from an ultrasound of the RUQ. He should have LFTs repeated in 1 week. The patient has prediabetes with A1C 5.8 and is being given information on a diabetic diet. Care for patient as well as completion of his discharge summary on day of discharge took 45 minutes. Home Meds and New Rx's Prescriptions: New doxycycline hyclate 100 mg Capsule 100 mg PO Q12H Qty: 8 0RF lidocaine 4 % adhesive patch,medicated 1 patch topical DAILY Qty: 30 0RF Rx Instructions: apply to posterior neck on for 12 hours, off for 12 hrs (DME) Back-Shoulder Ice,Heat Wrap Pad See Rx Instructions .Route Qty: 30 0RF Rx Instructions: apply to posterior neck for comfort Continued Anoro Ellipta 62.5-25 mcg/actuation blister with device 1 inh inhalation DAILY Qty: 60 12RF hemorrhoid ointment See Rx Instructions .ROUTE DIRECTED Rx Instructions: as directed; pantoprazole 40 mg tablet,delayed release (DR/EC) 40 mg PO BID Patient Comments: Not taking per med list 02/19/23 meloxicam 7.5 mg tablet 7.5 mg PO DAILY sennosides [senna] 8.6 mg Tablet 8.6 mg PO 2XD Patient Comments: Not taking per med list 02/19/23 cetirizine 10 mg Tablet 10 mg PO 1XD Patient Comments: Not taking per med list 02/19/23 levothyroxine 50 mcg Tablet 50 mcg PO 1XD ibuprofen 400 mg Tablet 400 mg PO 2XD PRN (Reason: Pain) Patient Comments: Not taking per med list 02/19/23 aspirin 81 mg Tablet,Chewable 81 mg PO 1XD Changed prednisone 20 mg tablet See Rx Instructions .ROUTE .COMPLEX Qty: 19 0RF Rx Instructions: 40 mg PO daily x 5 days, then 30 mg PO daily x 3 days, then 20 mg PO daily x 3 days, then 10 mg PO daily x 3 days, then stop. albuterol sulfate 90 mcg/actuation Hfa Aerosol Inhaler 90 mcg INHALATION Q4H PRN PRN (Reason: Dyspnea) Qty: 8.5 0RF Atrovent HFA 17 mcg/actuation HFA aerosol inhaler 1 inh inhalation QID Qty: 12.9 0RF Rx Instructions: inhaled as directed; Discharge Instructions Instructions: Doxycycline (By mouth), Prednisone (By mouth), Lidocaine (On the skin), COPD (Chronic Obstructive Pulmonary Disease) (DC), Meal Planning with Diabetes Exchanges (DC), Prediabetes (DC), Neck Pain (DC), Nuclear Stress Test (DC) Additional Instructions: Finish your antibiotics (doxycycline) and steroids as described. Return to the hospital with any fever, bleeding, chest pain, or worsening shortness of breath. Follow up with pulmonology. Follow up for your pulmonary function tests and sleep study as ordered by pulmonology. Follow up for your stress test. You have prediabetes. To the best of your ability, try to control your carbohydrate intake. Bloodwork in 1 week. Stand Alone Forms: Nursing Discharge Form Referrals: [facility] [Other] (Please call to make appointment for Stress Test.) Kim Romero MD [ [facility] STAFF PHYSICIAN] - (Please call to set up appo intment. ) Activity:: Activity as Tolerated Equipment/Supplies:: No Equipment Needed Diet:: Carb Counting Discharge Orders Discharge Orders: Discharge Order (Routine); Ordered 02/20/23 Ordered By: Jaclyn Reddy Other Ambulatory Orders: Liver Panel (Routine) Timeframe: 1 Week Location: Determined by Patient Ordered By: Jaclyn Reddy NM MPI rest & stress grp (Routine) Timeframe: 1 Week Facility: [facility] - Location: DIAGNOSTIC IMAGING DEPT Ordered By: Jaclyn Reddy DS: Summary Time Spent with Patient providing and/or coordinating discharge services: Greater than 30 minutes Status at Discharge Functional status at discharge: independent ambulation Overall status at discharge: patient is progressing back to baseline Mental Status: mental status grossly normal Speech and Movement: speech and movement normal Mood: congruent mood Affect: normal affect Exam Narrative Exam Narrative: General: Pleasant middle-aged male, A&Ox3, BLACKFEET, mildly dyspneic post trying to sit up in bed HEENT: EOMI, MMM, preserved ROM to neck Heart: RRR, no m/r/g Lungs: Faint expiratory wheezing B Abdomen: soft, nontender, nondistended Extremities: no edema BLEs Psych Mental Status: mental status grossly normal Speech and Movement: speech and movement normal Mood: congruent mood Affect: normal affect DS: Data Vitals/I&O Vitals and I&O: Vital Signs Temperature 36.6 C 02/20/23 11:18 Temperature Source Tympanic 02/20/23 11:18 Pulse 85 02/20/23 11:18 Pulse Rhythm Regular 02/20/23 07:35 Pulse 86 02/19/23 17:16 Respiratory Rate 20 02/20/23 07:45 Respiratory Effort Normal, Non-Labored 02/20/23 07:35 Respiratory Depth Normal 02/20/23 07:35 Respiratory Pattern Normal 02/20/23 07:35 Blood Pressure 120/80 02/20/23 11:18 Blood Pressure Mean 103 02/19/23 17:16 Blood Pressure Position Right Lateral 02/19/23 14:35 Pulse Oximetry 93 02/20/23 11:18 Respiratory End-tidal CO2 20 02/19/23 14:39 Oxygen Delivery Method Room Air 02/20/23 11:18 Oxygen Flow Rate 0 02/20/23 11:18 Pain Level 0 02/20/23 03:54 Comment isabel rn notified 02/20/23 03:54 Intake & Output 02/19/23 02/20/23 02/20/23 23:59 11:59 23:59 Intake Total 794 / 794 Balance 794 / 794 Weight 96.5 kg 96.5 kg Intake: IV 794 / 794 Other: Urine Appearance Clear Data Completed and Pending Completed studies during hospitalization [Text1]: Echo: The left ventricular wall thickness and chamber size.? Ejection fraction is 60 to 65%.? There are no segmental wall motion abnormalities Normal right ventricular size and systolic function Both atria are normal in size There is no structural or hemodynamically significant valvular disease Right ventricular systolic pressure could not be estimated Mildly dilated aortic root and ascending aorta CTA chest: No evidence of pulmonary embolism. No evidence of aortic dissection Emphysematous and fibrotic changes.? No acute pulmonary abnormality. Pending studies at discharge: Hepatitis panel Labs on day of discharge: Labs from last 24 hours 02/20/23 02/20/23 02/20/23 06:34 06:34 06:34 WBC 11.05 H RBC 4.06 L Hgb 14.0 Hct 38.8 L MCV 96 H MCH 34.5 H MCHC 36.1 H RDW 12.7 Plt Count 282 MPV 8.5 Immature Gran % See Differential Neutrophils % 80.0 Lymphocytes % 11.0 Monocytes % 7.0 Eosinophils % 0.0 Basophils % 1.0 Metamyelocytes % 1 Nucleated RBC % 0.0 Absolute Neutrophils 8.84 H Absolute Lymphocytes 1.22 Absolute Monocytes 0.77 Absolute Eosinophils 0.00 Absolute Basophils 0.11 RBC Morphology Normal ABG Sample Site ABG pH ABG pCO2 ABG pO2 ABG HCO3 ABG Total CO2 ABG O2 Saturation ABG Base Excess FiO2 Sodium Potassium Chloride Carbon Dioxide Anion Gap BUN Creatinine Est GFR (CKD-EPI 2020) Glucose Hemoglobin A1c Calcium Magnesium Total Bilirubin AST ALT Alkaline Phosphatase Troponin I C-Reactive Protein NT-Pro-B Natriuret Pep Total Protein Albumin Triglycerides Total Cholesterol LDL Cholesterol, Calc HDL Cholesterol Procalcitonin < 0.1 TSH COVID-19 Source SARS-CoV-2 (PCR) Add-On Test Request DONE 02/20/23 02/20/23 02/19/23 06:34 06:34 22:57 WBC RBC Hgb Hct MCV MCH MCHC RDW Plt Count MPV Immature Gran % Neutrophils % Lymphocytes % Monocytes % Eosinophils % Basophils % Metamyelocytes % Nucleated RBC % Absolute Neutrophils Absolute Lymphocytes Absolute Monocytes Absolute Eosinophils Absolute Basophils RBC Morphology ABG Sample Site ABG pH ABG pCO2 ABG pO2 ABG HCO3 ABG Total CO2 ABG O2 Saturation ABG Base Excess FiO2 Sodium 138 Potassium 3.9 Chloride 103 Carbon Dioxide 20.8 L Anion Gap 14.2 H BUN 22 H Creatinine 1.2 Est GFR (CKD-EPI 2020) 70.10 Glucose 139 H Hemoglobin A1c 5.8 H Calcium 9.0 Magnesium 1.9 Total Bilirubin AST ALT Alkaline Phosphatase Troponin I < 50 < 50 C-Reactive Protein < 0.05 NT-Pro-B Natriuret Pep Total Protein Albumin Triglycerides 100 Total Cholesterol 212 H LDL Cholesterol, Calc 131 H HDL Cholesterol 61 Procalcitonin TSH 2.38 COVID-19 Source SARS-CoV-2 (PCR) Add-On Test Request 02/19/23 02/19/23 02/19/23 20:20 18:52 18:08 WBC RBC Hgb Hct MCV MCH MCHC RDW Plt Count MPV Immature Gran % Neutrophils % Lymphocytes % Monocytes % Eosinophils % Basophils % Metamyelocytes % Nucleated RBC % Absolute Neutrophils Absolute Lymphocytes Absolute Monocytes Absolute Eosinophils Absolute Basophils RBC Morphology ABG Sample Site Left Radial ABG pH 7.43 ABG pCO2 32 L ABG pO2 69 L ABG HCO3 21 L ABG Total CO2 18 L ABG O2 Saturation 93 L ABG Base Excess -3 L FiO2 21 Sodium Potassium Chloride Carbon Dioxide Anion Gap BUN Creatinine Est GFR (CKD-EPI 2020) Glucose Hemoglobin A1c Calcium Magnesium Total Bilirubin AST ALT Alkaline Phosphatase Troponin I < 50 C-Reactive Protein NT-Pro-B Natriuret Pep Total Protein Albumin Triglycerides Total Cholesterol LDL Cholesterol, Calc HDL Cholesterol Procalcitonin TSH COVID-19 Source Nasal/Nares SARS-CoV-2 (PCR) Negative Add-On Test Request 02/19/23 02/19/23 02/19/23 15:29 15:29 15:29 WBC 6.97 RBC 4.40 Hgb 15.1 Hct 41.7 MCV 95 MCH 34.3 H MCHC 36.2 H RDW 12.5 Plt Count 295 MPV 8.3 Immature Gran % 0.0 Neutrophils % 79.0 Lymphocytes % 16.0 Monocytes % 4.0 Eosinophils % 0.0 Basophils % 0.0 Metamyelocytes % 1 Nucleated RBC % 0.0 Absolute Neutrophils 5.51 Absolute Lymphocytes 1.12 L Absolute Monocytes 0.28 Absolute Eosinophils 0.00 Absolute Basophils 0.00 RBC Morphology Normal ABG Sample Site ABG pH ABG pCO2 ABG pO2 ABG HCO3 ABG Total CO2 ABG O2 Saturation ABG Base Excess FiO2 Sodium 138 Potassium 3.7 Chloride 103 Carbon Dioxide 22.3 Anion Gap 12.7 H BUN 18 Creatinine 1.4 H Est GFR (CKD-EPI 2020) 58.26 Glucose 228 H Hemoglobin A1c Calcium 9.4 Magnesium 2.0 Total Bilirubin 0.4 AST 47 H ALT 131 H Alkaline Phosphatase 101 Troponin I < 50 C-Reactive Protein NT-Pro-B Natriuret Pep 48 Total Protein 7.7 Albumin 4.2 Triglycerides Total Cholesterol LDL Cholesterol, Calc HDL Cholesterol Procalcitonin TSH COVID-19 Source SARS-CoV-2 (PCR) Add-On Test Request 02/19/23 14:50 WBC RBC Hgb Hct MCV MCH MCHC RDW Plt Count MPV Immature Gran % Neutrophils % Lymphocytes % Monocytes % Eosinophils % Basophils % Metamyelocytes % Nucleated RBC % Absolute Neutrophils Absolute Lymphocytes Absolute Monocytes Absolute Eosinophils Absolute Basophils RBC Morphology ABG Sample Site Left Radial ABG pH 7.51 H ABG pCO2 25 L ABG pO2 59 L ABG HCO3 20 L ABG Total CO2 17 L ABG O2 Saturation 92 L ABG Base Excess -4 L FiO2 21 Sodium Potassium Chloride Carbon Dioxide Anion Gap BUN Creatinine Est GFR (CKD-EPI 2020) Glucose Hemoglobin A1c Calcium Magnesium Total Bilirubin AST ALT Alkaline Phosphatase Troponin I C-Reactive Protein NT-Pro-B Natriuret Pep Total Protein Albumin Triglycerides Total Cholesterol LDL Cholesterol, Calc HDL Cholesterol Procalcitonin TSH COVID-19 Source SARS-CoV-2 (PCR) Add-On Test Request PFSH All Active Problems (Updated 02/20/23 @ 14:05 by Jaclyn Reddy MD) Exertional dyspnea (Acute) H/O: stroke (Acute) Prediabetes (Acute) Chronic neck pain (Acute) Acute bronchitis (Acute) Acute exacerbation of chronic obstructive pulmonary disease (COPD) (Acute) Acute dyspnea (Acute) CKD (chronic kidney disease) (Chronic) Transaminasemia (Acute) Hyperglycemia (Acute) Former cigarette smoker (Acute) Adjustment disorder with depressed mood (Acute) Pain in right hip (Acute) Malignant neoplasm of nasopharynx (Acute) COPD (chronic obstructive pulmonary disease) (Chronic) Medical History (Updated 02/20/23 @ 14:05 by Jaclyn Reddy MD) GERD (gastroesophageal reflux disease) Hypothyroidism Lymphoma Mental health problem Mild cognitive impairment, so stated Stroke Unspecified hearing loss Viral warts Family History Father Diabetes Brother Diabetes Both 1/2 brothers had diabetes. Paternal Grandfather Diabetes Uncle Lung cancer Social History Smoking/Tobacco Use Status: Former Tobacco Use Quit Date: 11/19/21 Tobacco: How many years used: 50 Smoking risk assessment performed?: Yes Substance use type: does not use Housing: other Do you feel safe at home: Yes Do you feel safe in your relationship?: Yes Additional Social history: Pt smoked since he was 8 yrs old. He smoked 2 to 3 PPD and quit about 1.5 yrs ago. Time Spent with Patient Time Spent with Patient: 45-69 minutes Time was spent: preparing to see the patient(eg.review tests), obtaining and/or reviewing separately otained hiistory, ordering medications,tests, procedures, referring, communicating with other health care technician, indepentently interpreting results, counseling the patient and care coordination
[2023-02-20 14:25] LABS: Lab Add On Test DONE
--- NOTE | 2023-02-21 09:01 | NUR.NOTE ---
Accessed pt chart to determine EKG orders. Nursing Note:
[2023-02-21 12:33] LABS: HBs Antibody, Qual Negative (See Note); HBs Antibody, Quant <3.1 mIU/mL (See Note); Hepatitis B Core Antibody Positive (Negative); Hepatitis B surface Ag Negative (Negative); Hepatitis C Ab w Rflx HCV PCR Negative (Negative)
== END 2023-02-20 14:55 ==
LOC: ER 20:19 → MS 21:00
PROVIDERS: Hospitalist; Admitting Provider Internal Medicine; Emergency Provider Student in an Organized Health Care Education/Training Program; Visit Provider Internal Medicine
DX: J44.1 Chronic obstructive pulmonary disease with (acute) exacerbation (principal); J44.0 Chronic obstructive pulmonary disease with (acute) lower respiratory infection; J20.9 Acute bronchitis, unspecified; R73.03 Prediabetes; E03.9 Hypothyroidism, unspecified; R74.01 Elevation of levels of liver transaminase levels; N18.9 Chronic kidney disease, unspecified; Z87.891 Personal history of nicotine dependence; Z85.72 Personal history of non-Hodgkin lymphomas; M25.551 Pain in right hip; F43.21 Adjustment disorder with depressed mood; K21.9 Gastro-esophageal reflux disease without esophagitis; G31.84 Mild cognitive impairment of uncertain or unknown etiology; E87.3 Alkalosis; M54.2 Cervicalgia; G89.29 Other chronic pain; Z79.899 Other long term (current) drug therapy; Z86.73 Personal history of transient ischemic attack (TIA), and cerebral infarction without residual deficits
CPT/HCPCS: 36415; 71275; 80048; 80053; 80061; 82805; 84145; 86704; 86706; 86803; 87340; 87635; 93005; 94618; 96360; 96361; 99285; J1650; 36600; 83036; 83735; 83880; 84443; 84484; 85025; 86140; 93010; 93306; 94640; 94667; 94760; 99223; 99239; G0378; J3490; J7512; J7620

== ENCOUNTER 2023-03-08 09:06 | Outpatient (CLI) | payer OTHER, SELFPAY ==
--- NOTE | 2023-03-08 08:45 | DI.RAD_ITS ---
Exam(s) XR HIP PELVIS ADULT BL EXAM: XR HIP PELVIS ADULT BL CLINICAL HISTORY: hip pain. TECHNIQUE: 2D digital imaging was performed. COMPARISON: No exams were available for comparison FINDINGS: No evidence of pelvic nor hip fracture. Additional lateral views of the hips reveals no joint space narrowing nor osteophytes. Bone density normal. No osseous lesions. IMPRESSION: No significant radiograph findings in the hips. DATA REPOSITORY: RADIATION DOSE DELIVERED:
== END 2023-03-08 09:07 | disposition home or self-care (01) ==
LOC: DIORS 09:07
PROVIDERS: Visit Provider Physician Assistant
DX: M25.551 Pain in right hip (principal); M25.552 Pain in left hip
CPT/HCPCS: 73521

== ENCOUNTER 2023-03-13 04:57 | Outpatient (CLI) | payer OTHER, SELFPAY ==
[2023-03-13] MEDS: Albuterol HFA 18 GM 200 PUFF INH IH (11:23)
[2023-03-13] MEDS: Inhaler, Assist Device 1 EACH MC (11:23)
--- NOTE | 2023-03-16 07:10 | W.PFT ---
Date of service: 03/13/23 Time of Service: 10:04 Pulmonary Function Test Result Indications: COPD Interpretation Spirometry: There is no airflow limitation. There is a significant bronchodilator response. Lung Volumes: Normal lung volumes Diffusion Capacity: Normal diffusion Airway Pressure: Normal airways resistance Impression Normal pulmonary function testing Clinical Correlation therefore is recommended.
== END 2023-03-13 04:58 | disposition home or self-care (01) ==
LOC: RT 04:57
PROVIDERS: Visit Provider Physician Assistant Surgical
DX: J44.9 Chronic obstructive pulmonary disease, unspecified (principal)
CPT/HCPCS: 94060; 94726; 94729

== ENCOUNTER → 2023-03-15 02:40 | Outpatient (CLI) | payer OTHER, SELFPAY ==
--- NOTE | 2023-03-15 08:10 | DI.CTLCSR_ITS ---
Exam(s) CT CHEST LUNG CANCER SCREEN EXAM: CT CHEST LUNG CANCER SCREEN CLINICAL HISTORY: Screening for lung cancer,FORMER SMOKER. TECHNIQUE: Imaging Protocol: Low Dose Technique CONTRAST MATERIAL: None COMPARISON: CT CT CHEST PE CTA from 02/19/2023 FINDINGS: CHEST: LUNGS: There are no ominous pulmonary nodules. There is some infiltrate in the medial segment of the right middle lobe adjacent to the right heart border. Unchanged from previous study. No new signifi cant ominous nodules. No pleural effusions. MEDIASTINUM: There is no obvious hilar nor mediastinal adenopathy. CARDIAC: Heart size is normal. There is no pericardial effusion.Caliber of the thoracic aorta is wit hin normal limits. OTHER: No adrenal masses. OSSEOUS: No significant osseous lesions.No fractures.. IMPRESSION: 1. No new ominous pulmonary nodules. There is, however, some infiltrate in the medial segment of the right middle lobe adjacent to the right heart border again evident. No associated pleural effusions . No new intrathoracic adenopathy. 2. No pleural effusions. 3. Lung RADS Cat 2 - Benign Appearance / Behavior: Nodules with a very low likelihood of becoming a c linically active cancer due to size or lack of growth Lung-RADS 1.0 CATEGORIES: Category 0 - Prior chest CT exam(s) being located for comparison. Category 1 - Annual screening in 12 months. No nodules or definitely benign nodules. Category 2 - Annual screening in 12 months. Benign appearance. Nodules with low likelihood of becomin g active cancer. Category 3 - 6-month follow-up. Probably benign. Short-term follow-up suggested. Nodules with low lik elihood of becoming active cancer. Category 4A - 3-month follow-up and CT/PET if >8 mm in size. Suspicious finding. Findings which requi re additional testing. Category 4B - Findings which require additional testing and tissue sampling. Category 4X - Category 3 or 4 nodules with additional features or imaging findings that increases the suspicion of malignancy. Modifier S- Potentially clinically significant findings (non lung cancer) RADIATION DOSE DELIVERED: 85.2mGy.cm Total DLP DATA REPOSITORY: All CT scans at this facility are submitted to the National Radiology Data Registry (NRDR) Dose Index Registry (DIR) with the [employer] (A[employer]). RADIATION OPTIMIZATION: All CT scans at this facility use at least one of these dose optimization te chniques: automated exposure control; mA and/or kV adjustment per patient size (includes targeted exa ms where dose is matched to clinical indication); or iterative reconstruction.
--- NOTE | 2023-03-15 10:10 | DI.NM_ITS ---
APPROVED REPORT Exam: Pharmacologic Patient Location: Out-Patient Room/Bed: Stress Nurse: Grisel Alvarado RN Ordering Provider:RISHABH MARTIN, Contact Number: [phone] BMI: 34.18 Baseline Rhythm: Sinus Rhythm Comment: Resting T wave abnormalities Indications: Dyspnea on exertion, SOB Medical History Medical History: h/o stroke, exertional dyspnea, prediabetes, chronic neck pain, COPD, CKD, adjustmen t disorder with depressed mood, hypothyroidism, mild cognitive impairmen Cardiac Medications: Aspirin, Elipta, Prednison, Pantoprazole, Albuterol, Atrovent Allergies: Shellfish, Acetaminophen Cardiac Risk Factors: COPD, preDM, former smoker, obesity Previous Cardiac Procedures: None Pretest Chest Pain Characteristics: Reproducable chest pain, ache, 5/10 Exercise History: Sedentary Physical Disabilities: utilizes walker when short of breath, COPD Lung Sounds: Expiratory wheeze throughout all lung downey Heart Sounds: Regular, s1/s2 Stress Test Details Test: Pharmacologic stress testing performed using 0.4 mg of regadenoson per 5 mL given IV over 10 s econds. Reason for pharmacologic stress test: physical limitation. Nuclear Acquisition: Rest Tc-99m/Stress Tc-99m 1 day Rest Isotope: Tc-99m Sestamibi. Dose: 10.0 Date: 03/15/2023 Injection Time: 8:25 Stress Isotope: Tc-99m Sestamibi. Dose: 31.0 Date: 03/15/2023 Injection Time: 10:09 HR Resting HR Supine: 64 bpm Max Heart Rate (APMHR): 162.119768 bpm Target HR (85% APMHR): 137.832615 bpm Max HR Achieved: 100 bpm % of APMHR: 61.73 Recovery HR: 75 bpm BP Resting BP Supine: 142/92 mmHg Max BP: 140/88 mmHg Recovery BP: 128/90 mmHg ECG Resting ECG: Sinus Rhythm, Resting nonspecific ST-T abnormalities Stress ECG: Sinus Rhythm ST Change: Nondiagnostic resting ST abnormalities Arrhythmia: None Recovery ECG: Sinus Rhythm Recovery ST Change: Nondiagnostic resting ST abnormalities Recovery Arrhythmia: None Clinical Stress Symptoms: Chest pain, Dyspnea, Headache Rate Pressure Product: [id number] Stress ECG Conclusion 1. Electrocardiogram showed nondiagnostic ST-T abnormalities 2. Patient underwent testing using pharmacologic stress with regadenoson 3. Peak heart rate achieved was 62% of predicted for age 4. Electrocardiographic portion of the test was nondiagnostic 5. See MPI report Stress Test Summary STAGE HR BP SpO2 Symptoms NOTES Supine 64 142/92 96% Reproducable ache, 5/10 chest pain 1 min post Lexiscan injection 70 138/100 95% CP 3/10, moderate SOB 3 min post Lexiscan injection 96 140/88 98% Moderate-severe SOB, LUIS 6 min post Lexiscan injection 78 128/90 CP 0/10, Baseline shortness of breath, headache resolved MPI Conclusion Myocardial perfusion is normal. There is no ischemia or evidence of prior infarction Ejection fraction is 60% with normal wall motion Radiologist Interpretation Radiologist agrees with [employer] Operator's Interpretation. Radiologist Interpretation by: Holden Pierce MD Interpretation Date/Time: 03/15/2023 18:44:03
[2023-03-15] MEDS: Regadenoson 0.4 MG/5 ML SYR IVP (11:45)
== END ==
PROVIDERS: Visit Provider Nurse Practitioner Adult Health
DX: Z12.2 Encounter for screening for malignant neoplasm of respiratory organs (principal); Z87.891 Personal history of nicotine dependence; R06.09 Other forms of dyspnea; R06.02 Shortness of breath
CPT/HCPCS: 71271; 78452; 93017; J2785

== ENCOUNTER → 2023-07-09 01:03 | Outpatient (CLI) | payer OTHER, SELFPAY ==
--- NOTE | 2023-07-09 | DI.RAD_ITS ---
Exam(s) RF BARIUM SWALLOW EXAM: RF BARIUM SWALLOW CLINICAL HISTORY: DYSPHAGIA,R13.10 TECHNIQUE: 2D and realtime digital imaging was performed. CONTRAST MATERIAL: Oral barium contrast was administered. COMPARISON: CT CT CHEST LUNG CANCER SCREEN from 03/15/2023 FINDINGS: CHEST X-RAY: The heart and pulmonary vasculature are within normal limits. The lungs are clear. No pl eural effusion or pneumothorax is present. The bones are within normal limits for the patient's age. ESOPHAGRAM: The esophagus is patent with no evidence for erosions, fold thickening, strictures, or ma sses. There tertiary contractions noted in the esophagus. There is mild reflux noted. There is pene tration seen during the examination without evidence of aspiration. A small hiatal hernia is present . IMPRESSION: 1. Mild penetration without evidence of aspiration during the examination. 2. Mild gastroesophageal reflux. Small hiatal hernia. 3. Tertiary contractions are noted. RADIATION DOSE DELIVERED: naeem Friedman=25.2 mGy
[2023-07-09] MEDS: Barium Sulfate 60% W/V 355 ML BTL PO (10:12)
== END ==
PROVIDERS: Visit Provider Nurse Practitioner Adult Health
DX: R13.10 Dysphagia, unspecified (principal); K21.9 Gastro-esophageal reflux disease without esophagitis; K44.9 Diaphragmatic hernia without obstruction or gangrene
CPT/HCPCS: 74221

== ENCOUNTER 2023-07-27 12:53 | Day surgery (SDC) | payer OTHER, SELFPAY ==
--- NOTE | 2023-07-26 18:44 | W.PM.DSUDISC ---
Date of service: 07/27/23 Time of Service: 15:02 Discharge Plan Disposition Patient Disposition: Home Condition: Good Discharge Details Reason For Visit: EGD Attending Provider: Stepan Spears Primary Care Provider: Unknown,Unknown Home Meds and New Rx's Prescriptions: Continued Anoro Ellipta 62.5-25 mcg/actuation blister with device 1 inh inhalation DAILY Qty: 60 12RF Patient Comments: not on facility med list 07/27/23 hemorrhoid ointment See Rx Instructions .ROUTE DIRECTED Patient Comments: see above note Rx Instructions: as directed; pantoprazole 40 mg tablet,delayed release (DR/EC) 40 mg PO BID Patient Comments: med list states one time a day, pt. states it was over a week ago, facility reports 07/25/23 hydrochlorothiazide 25 mg tablet 25 mg PO DAILY Patient Comments: see note on above meds loratadine [Allerclear] 10 mg tablet 10 mg PO DAILY Patient Comments: see note tiotropium bromide [Spiriva with HandiHaler] 18 mcg capsule, w/inhalation device 1 cap inhalation DAILY Patient Comments: see note Rx Instructions: puncture 1 cap using device; one dose = 2 inhalations sennosides [senna] 8.6 mg Tablet 8.6 mg PO 2XD Patient Comments: Not taking per med list 02/19/23 levothyroxine 50 mcg Tablet 50 mcg PO 1XD Patient Comments: see note ibuprofen 400 mg Tablet 400 mg PO 2XD PRN (Reason: Pain) Patient Comments: Not taking per med list 02/19/23 aspirin 81 mg Tablet,Chewable 81 mg PO 1XD Patient Comments: pt. states it has been over a week, facility reports 07/25/23 (DME) Back-Shoulder Ice,Heat Wrap Pad See Rx Instructions .Route Qty: 30 0RF Patient Comments: pt. states he is not using Rx Instructions: apply to posterior neck for comfort albuterol sulfate 90 mcg/actuation Hfa Aerosol Inhaler 90 mcg INHALATION Q4H PRN PRN (Reason: Dyspnea) Qty: 8.5 0RF Patient Comments: pt. reports over a week ago, facility reports 07/25/23 Atrovent HFA 17 mcg/actuation HFA aerosol inhaler 1 inh inhalation QID Qty: 12.9 0RF Patient Comments: see above note Rx Instructions: inhaled as directed; Discharge Instructions Additional Instructions: Omari, we are able to complete your upper endoscopy today without any issues. Everything looks very normal. I do not see anything worrisome at all. In fact, I really do not see any concerning signs of severe gastroesophageal reflux disease. I did take some biopsies in several places along your stomach as well as your esophagus to see if I can find anything that may not be evident to the naked eye. I do think it would be beneficial for you to undergo a barium swallow test in the weeks to come. This gives us a little better sense of how your esophagus actually moves things through from your mouth down into your stomach. I will place an order for this to be done as an outpatient, and once we get those results, we can be in touch to set up another follow-up outpatient visit. I will also be in touch with the results of the biopsies if there is anything concerning there. 1. If tolerated, consume a soft, low fiber diet for 1-2 days. [address] Do not drive, drink alcohol, operate machinery, make critical decisions, or do activities that require coordination or balance for 24 hours. 3. You may experience a sore throat for 24 to 48 hours. You may use throat lozenges or gargle with warm salt water to relieve the discomfort. 4. Because air was put into your stomach during the procedure, you may experience some belching. 6. Go directly to the emergency room if you notice any of the following: Develop chills (warm to touch), or if you have a thermometer and your temperature is above 101 Difficulty breathing or difficultly swallowing Persistent vomiting Severe abdominal pain, other than gas cramps Severe chest pain Black, tarry stools Any bleeding ? exceeding one tablespoon 6. Call your physician if the site where your intravenous was started becomes red, swollen, painful, and warm to touch. 7. Your physician has reviewed your pre-procedure medications. Please continue to take those medications as previously ordered. You will be given specific information/education regarding any changes to your medications before leaving. Stand Alone Forms: Anesthesia Discharge InstViji Hancock (DSU) Activity:: Activity as Tolerated Diet:: As Tolerated Discharge Orders Discharge Orders: Discharge Order (Routine); Ordered 07/26/23 Ordered By: Stepan Spears DS: Diagnosis Discharge Diagnosis (1) GERD (gastroesophageal reflux disease): Asessment and Plan: Normal-appearing EGD; I think we should follow-up with outpatient barium swallow
--- NOTE | 2023-07-26 18:48 | ENDO_ITS ---
Date of service: 07/27/23 Time of Service: 15:04 Endoscopy Report DATE OF PROCEDURE: 07/27/23 PRE-OP DIAGNOSIS: GERD POST-OP DIAGNOSIS: other (Normal EGD) PROCEDURE: EGD with biopsies SURGEON: Stepan Spears ANESTHESIA TYPE: General:No Airway ESTIMATED BLOOD LOSS: 5 PATHOLOGY: other (Random biopsies of the gastric antrum and body as well as random biopsies of the esophagus) COMPLICATIONS: None DISPOSITION: same day INDICATIONS: Omari is a 58 year old man with longstanding GERD who has recently experienced dysphagia PROCEDURE START TIME: 14:49 PROCEDURE END TIME: 14:56 FINDINGS: Normal-appearing EGD. Normal Z-line and GE junction measures 38 cm from the incisors. PROCEDURE DESCRIPTION: After the initiation of monitored anesthetic care, and with the assistance of a bite block, I advanced a standard gastroscope through the mouth past the hypopharynx and into the esophagus.? Under the direct vision of the scope, I advanced down the esophagus into the stomach.? GE junction and Z-line were normal-appearing at 38 cm from the incisors. I saw no evidence of any strictur es or diverticula along the length of the esophagus. I advanced down into the stomach and performed retroflexion. I did not appreciate a hiatal hernia. The upper portion of the stomach including the gastric cardia and body appeared normal. I insufflated the stomach until the gastric rugae were obliterated. It still appeared normal. I was able to advance around down past the incisura angularis and into the duodenum. All of this was normal. I then brought the camera back up into the stomach and perform some random biopsies of the gastric antrum and body using cold forceps. There was minimal bleeding at the sites. I emptied the stomach and brought the camera back up through the GE junction. Narrowband imaging was used to assist with examination of the GE junction. I did not see any signs of Mattson's esophagus. I did perform some random biopsies of the lower esophagus to rule out esophagitis. I then brought the camera back out along the length of the esophagus again, taking care to examine it. I did not see any signs of any other esophageal pathology. I did not see any signs of esophageal inlet patches. Then brought the camera out, and allowed the patient from wake up from anesthetic and transferred to the recovery unit
[2023-07-27 13:27] VITALS: BP 159/101; PULSE 79; RESP 24; TEMP 36.2; O2SAT 96
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
[2023-07-27] MEDS: Lactated Ringers 1,000 ML 80 ML IV (14:05)
[2023-07-27 14:29] VITALS: BMI 36.8
--- NOTE | 2023-07-27 14:46 | STOM_PTH ---
PATIENT: Omari Fernandez LOC: [facility] U#:[id number] AGE/SX: 58/M ROOM: RE07/27/[address]: Stepan Spears MD : 1965 BED: DIS: 07/27/2023 SPEC #: [id number] RECD: 07/27/23 17:33 STATUS: FELICIA RE #: [id number] TRES: 07/27/23 14:[address]: Stepan Spears DEPT: Surgical Specimen RECD BY: Mehnaz Castillo ENTERED: 07/27/23 17:34 SP TYPE: STOMACH OTHR DR: Unknown,Unknown Tissues: 1 - STOMACH BIOPSY 2 - STOMACH BIOPSY 3 - ESOPHAGUS BIOPSY Procedures: GROSS AND MICRO LEVEL 4 Comments: [id number]
[2023-07-27 14:59] VITALS: BP 123/88; PULSE 79; RESP 20; TEMP 36.5; O2SAT 94
--- NOTE | 2023-07-27 15:18 | W.ANESPOSTOP ---
Postoperative Evaluation Date, Time and Location Date Performed: 07/27/23 Time Performed: 15:18 Patient Location: Day Surgery Unit Vital Signs Most Recent Imported Vital Signs: Most Recent Vital Signs Temp Pulse Resp BP Pulse Ox 36.5 C 79 20 123/88 94 07/27/23 14:59 07/27/23 14:59 07/27/23 14:59 07/27/23 14:59 07/27/23 14:59 Pain Score Most Recent Pain Score: Most Recent Pain Score Pain Level 0 07/27/23 14:59 Assessment Mental Status: Awake (Alert & Oriented to Patient Baseline) Airway and Respiratory Function: Patent airway with normal (patient baseline) respiratory exam Cardiovascular Function: Hemodynamically Stable Hydration Status: Adequately Hydrated Nausea & Vomiting: No Nausea or Vomiting Pain: Pt. Denies Any Pain Peripheral Nerve Block: Patient did not receive a nerve block Postoperative Comments:: Pt. is audibly wheezy, however feels like his breathing is close to baseline and he gets SOB after 5 steps using his walker by report.Will give duoneb and discharge.
[2023-07-27 15:29] VITALS: BP 131/85; PULSE 73; RESP 20; TEMP 36.6; O2SAT 95
[2023-07-27 15:30] VITALS: RESP 5; RESP 9; O2SAT 91
[2023-07-27] MEDS: Albuterol/Ipratropium 3 ML UPD VIAL UPD (15:30)
[2023-07-27 15:44] VITALS: RESP 5
== END 2023-07-27 16:05 | disposition home or self-care (01) ==
LOC: SUR 12:54
PROVIDERS: Visit Provider Surgery
PROC: 0DJ68ZZ Inspection of Stomach, Via Natural or Artificial Opening Endoscopic (ICD-10-PCS; CPT 43235; principal; 2023-07-27 14:30)
DX: K21.9 Gastro-esophageal reflux disease without esophagitis (principal)
CPT/HCPCS: 43239; 88305; 94640; J2704; J7620